=== PATIENT | female | born 1990 | race Caucasian/White ===

== ENCOUNTER 2017-02-26 18:32 | Emergency (ER) | payer MEDICAID ==
--- NOTE | 2017-02-26 19:13 | EDM.PDOC ---
ED HPI GENERAL MEDICAL PROBLEM - General Chief Complaint: General Stated Complaint: PT HAS SHOULDER AND NECK PAIN 15WKS Time Seen by Provider: 02/26/17 18:50 Source of Information: Reports: Patient History Limitations: Reports: No Limitations - History of Present Illness INITIAL COMMENTS - FREE TEXT/NARRATIVE: HISTORY AND PHYSICAL: History of present illness: [Patient comes to the emergency room complaining of muscle tightness to shoulders and back. She is 15 weeks . Symptoms began over the past couple of days and has gradually worsened and she is having pain with moving her neck. Did not sleep well last night as she had difficulty getting comfortable. She works as a massage therapist and teaches yoga classes. She thinks she may have twisted something in her neck or upper back that is causing the pain and inflammation. She has not taken any medications for her symptoms as Tylenol usually doesn't help. She has not had fever or chills. She is otherwise feeling well and has not had any recent illness or infection. She has applied heating pads and ice packs and try to her neck for relief without improvement.] Review of systems: As per history of present illness and below otherwise all systems reviewed and negative. Past medical history: As per history of present illness and as reviewed below otherwise noncontributory. Surgical history: As per history of present illness and as reviewed below otherwise noncontributory. Social history: No reported history of drug or alcohol abuse. Family history: As per history of present illness and as reviewed below otherwise noncontributory. Physical exam: HEENT: Atraumatic, normocephalic. TMs are pearly foy and without bulging bilaterally. Oral mucous membranes are pink and moist. Throat is clear. Neck is supple there is no lymphadenopathy. Trachea midline. Back: No spinal tenderness or step-offs. No low back tenderness. Take musculature through sternocleidomastoid bilaterally and trapezius muscles. Diminished range of motion with lateral neck flexion bilaterally due to tightness. Has full range of motion with flexion, extension and rotation Lungs: Clear to auscultation, breath sounds equal bilaterally. Heart: S1S2, regular rate and rhythm. Abdomen: Appearances consistent with an approximately 15 week . Soft, nondistended, nontender. Negative for costovertebral tenderness. Pelvis: Stable nontender. Genitourinary: Deferred. Rectal: Deferred. Extremities: Atraumatic. Neurovascular unremarkable. Neuro: Awake, alert, oriented. Cranial nerves II through XII unremarkable. Cerebellum unremarkable. Motor and sensory unremarkable throughout. Exam nonfocal. Impression: [Myalgias] Plan: [Due to second trimester no muscle relaxants will be prescribed or given in ER. Recommend Tylenol and Benadryl prn, massage, heat and ice packs. Recommend she followup with her OB on Wednesday if she still having pain and tightness. She is in agreement with today's plan. all of her questions are answered. ] Definitive disposition and diagnosis as appropriate pending reevaluation and review of above. neck, right shoulder, head Pain Score (Numeric/FACES): 8 - Related Data Allergies Allergy/AdvReac Type Severity Reaction Status Date / Time No Known Allergies Allergy Verified 02/26/17 18:44 Home Meds: Home Meds #103/Iron Fumarate/Fa [ ] 1 tab PO DAILY 02/26/17 [ History] Past Medical History - Past Health History Medical/Surgical History: Denies Medical/Surgical History HEENT History: Reports: Impaired Vision Other HEENT History: wears glasses Social & Family History - Family History Family Medical History: Noncontributory - Tobacco Use Smoking Status *Q: Never Smoker - Caffeine Use Caffeine Use: Reports: None - Recreational Drug Use Recreational Drug Use: No ED ROS GENERAL - Review of Systems Review Of Systems: See Below ED EXAM, GENERAL - Physical Exam Exam: See Below Course - Vital Signs Last Recorded V/S: Last Vital Signs Temp 98.4 F 02/26/17 19:51 Pulse 99 02/26/17 19:51 Resp 17 02/26/17 19:51 BP 121/77 02/26/17 19:51 Pulse Ox 96 02/26/17 19:51 Departure - Departure Time of Disposition: 19:30 Disposition: Home, Self-Care 01 Condition: good Clinical Impression: Myalgia - Discharge Information Instructions: Muscle Pain, Adult Referrals: PCP,None [Primary Care Provider] - Forms: ED Department Discharge Additional Instructions: The following information is given to patients seen in the emergency department who are being discharged to home. This information is to outline your options for follow-up care. We provide all patients seen in our emergency department with a follow-up referral. The need for follow-up, as well as the timing and circumstances, are variable depending upon the specifics of your emergency department visit. If you don't have a primary care physician on staff, we will provide you with a referral. We always advise you to contact your personal physician following an emergency department visit to inform them of the circumstance of the visit and for follow-up with them and/or the need for any referrals to a consulting specialist. The emergency department will also refer you to a specialist when appropriate. This referral assures that you have the opportunity for follow-up care with a specialist. All of these measure are taken in an effort to provide you with optimal care, which includes your follow-up. Under all circumstances we always encourage you to contact your private physician who remains a resource for coordinating your care. When calling for follow-up care, please make the office aware that this follow-up is from your recent emergency room visit. If for any reason you are refused follow-up, please contact the [facility] emergency department at and asked to speak to the emergency department charge nurse. [facility] [address] [place] [id number] Followup with your OB in 48-72 hours. Tylenol as needed for pain, Benadryl as needed for insomnia. Massage, ice he had, heat packs and ice packs. Return to ER as needed as discussed.
[2017-02-26 19:54] VITALS: BP 121/77
== END 2017-02-26 19:40 | disposition home or self-care (01) ==
LOC: MW.ED 18:32
DX: O99.89 Other specified diseases and conditions complicating pregnancy, childbirth and the puerperium (principal); M79.1 Myalgia; Z3A.15 15 weeks gestation of pregnancy; Z79.899 Other long term (current) drug therapy
CPT/HCPCS: 99283

== ENCOUNTER 2024-09-07 01:17 | Emergency (ER) | payer BC ==
[2024-09-07 02:49] LABS: PH,VENOUS 7.4 (7.31-7.41)
[2024-09-07 02:51] LABS: BASE EXCESS VENOUS 1.7 (-2.0-3.0)
[2024-09-07 03:54] VITALS: BP 134/89; PULSE 102
== END 2024-09-07 03:53 | disposition home or self-care (01) ==
LOC: MW.ED 01:17
DX: R42 Dizziness and giddiness (principal)
CPT/HCPCS: 36415; 82375; 82803; 84703; 93005; 99284